=== PATIENT | male | born 1955 ===

== ENCOUNTER 2017-06-11 07:35 | Day surgery (SDC) | payer OTHER ==
[2017-06-11] VITALS (9 sets, daily range): BP systolic 121–148; BP diastolic 82–91
[~2017-06-11] VITALS: Ht 167.6 cm; Wt 78.5 kg
[~2017-06-11 07:35] MED LIST: LR 1000ml 1,000 ML IVLG SCH
[2017-06-11] MEDS ORDERED: Lidocaine 1% MPF 10mg/ml 5ml ONE (07:36)
[2017-06-11] MEDS ORDERED: Midazolam 2mg/2ml Inj ONE (07:36)
[2017-06-11] MEDS ORDERED: LR 1000ml ONE (07:36)
[2017-06-11] MEDS ORDERED: Propofol 200mg/20ml IV ONE (07:36)
--- NOTE | 2017-06-11 07:53 | Short Stay Surgery H&P ---
History of Present Illness History of Present Illness Chief Complaint Abdominal pains, GERD and dysphagia HPI Richard Muro is a 61 year old male who was admitted on for GERDS and dysphagia/abdominal pains Patient History Allergies: Coded Allergies: No Known Allergies (Unverified , 06/10/17) PAST MEDICAL HISTORY: Past Surgeries: Social History: Review of Systems Cardiovascular: Reports: no symptoms Respiratory: Reports: no symptoms Skeletal: Reports: trauma, other Gastrointestinal: Reports: gastro esophageal reflux disease Genitourinary: Reports: no symptoms Neurologic: Reports: no symptoms Endocrine: Reports: no symptoms Hematologic: Reports: no symptoms Physical Exam Skin: normal HENT: normal Heart: normal Lungs: normal Abdomen: abnormal Extremities: normal Genitourinary: normal Plan Plan of Care Upper GI endoscopy and biopsy Preop Interventions None. Summary of Findings See the reports Final Diagnosis: Attestation Are the patient's medical conditions optimized for surgery? Attestation Response: yes NAA TEJEDA Jun 11, 2017 07:53
--- NOTE | 2017-06-11 07:54 | Pre-Procedure Note/Attestation ---
Pre-Procedure Note/Attestation Complete Prior to Procedure Planned Procedure: left Procedure Narrative: Examination of the upper GI tract via endoscopy Indications for Procedure Pre-Operative Diagnosis: R/O peptic ulcer/esophagitis/gastritis. Attestation I attest that I discussed the nature of the procedure; its benefits; risks and complications; and alternatives (and the risks and benefits of such alternatives ), prior to the procedure, with the patient (or the patient's legal inbound sales representative). I attest that, if there was a reasonable possibility of needing a blood transfusion, the patient (or the patient's legal inbound sales representative) was given the [place] [facility] [employer] [facility] standardized written summary, pursuant to the Luis Nahum Blood Safety Act ([place] Health and Safety Code # 1645, as amended). I attest that I re-evaluated the patient just prior to the surgery and that there has been no change in the patient's H&P, except as documented below: ILEANA,SAID Jun 11, 2017 07:54
[2017-06-11] MEDS ORDERED: LR 1000ml 1,000 ML IVLG SCH (08:39)
[2017-06-11] MEDS ORDERED: LORazepam Inj 2mg/ml 1ml IV PRN (08:45)
[2017-06-11] MEDS ORDERED: Hydromorphone 0.5mg/0.5ml inj IVP PRN (08:45)
[2017-06-11] MEDS ORDERED: DiphenhydrAMINE 50mg/ml Inj IVP PRN (08:45)
[2017-06-11] MEDS ORDERED: HYDROcodone/Acetamin 7.5/325 tab ORAL PRN (08:45)
[2017-06-11] MEDS ORDERED: Atropine Inj 1mg/10ml Syr IV PRN (08:45)
[2017-06-11] MEDS ORDERED: oxyCODONE HCL/Acetaminophen 5/325mg ORAL PRN (08:45)
[2017-06-11] MEDS ORDERED: Ketorolac 30mg Inj IV PRN ×2 (08:45)
[2017-06-11] MEDS ORDERED: Midazolam 2mg/2ml Inj IVP PRN (08:45)
[2017-06-11] MEDS ORDERED: Labetalol 5mg/ml 20ml vial IV PRN (08:45)
[2017-06-11] MEDS ORDERED: fentaNYL 100 mcg/2 mL IV PRN (08:45)
[2017-06-11] MEDS ORDERED: Norco 5mg/325mg tab ORAL PRN (08:45)
--- NOTE | 2017-06-11 08:48 | Anethesia Preoperative Eval ---
Anesthesia Pre-op PMH/ROS General Date of Evaluation: Jun 11, 2017 Time of Evaluation: 08:34 Anesthesiologist: Johnny ASA Score: ASA 3 Mallampati Score Class I : Soft palate, uvula, fauces, pillars visible Class II: Soft palate, uvula, fauces visible Class III: Soft palate, base of uvula visible Class IV: Only hard plate visible Mallampati Classification: Class II Surgeon: Modesta Diagnosis: GERD Surgical Procedure: EGD Anesthesia History: none Family History: no anesthesia problems Allergies: Coded Allergies: No Known Allergies (Unverified , 06/10/17) Medications: see eMAR Past Medical History Cardiovascular: Reports: HTN Gastrointestinal/Genitourinary: Reports: GERD, other - BPH, Hiatal Hernia Musculoskeletal/Integumentary: Reports: other - Back Pain Other: obesity - BMI 30 Anesthesia Pre-op Phys. Exam Physician Exam Last Vital Signs Date Time Temp Pulse Resp B/P (MAP) Pulse Ox O2 Delivery O2 Flow Rate FiO2 06/11/17 08:25 97.3 64 18 148/87 98 Room Air 97.3 Constitutional: NAD Neurologic: CN 2-12 intact Cardiovascular: RRR Respiratory: CTA Gastrointestinal: S/NT/ND Airway Exam Mallampati Score: Class II MO: limited ROM: limited Teeth: missing, intact Anesthesia Pre-op A/P Risk Assessment & Plan Assessment: ASA 3 Plan: GA Status Change Before Surgery: Franko Arriaga MD Jun 11, 2017 08:48
--- NOTE | 2017-06-11 08:50 | Endoscopy Procedure Note ---
Endoscopy Procedure Note General Indication for Procedure: Abdominalp pains Procedures Performed: EGD - Small sliding Hiatal Hernia. Mild/Moderate gastritis. biopsies were obtained from fundus and gastric body area. Specimen: yes Pt Tolerated Procedure Well: Yes Estimated Blood Loss: none Anesthesia Anesthesiologist: Dr. Jones Anesthesia: moderate sedation Medications Medication Given: see anesthesia record Inserted Devices Implant(s) used?: No Quality Quality of Bowel Preparation: Excellent GI Core Measures 50 yrs or older w/o bx or poly: Not Applicable 10yrs. F/U not recommended: Not Applicable If not recommended, why?: Med reason:<3 yrs.: System Reason:<3 yrs.: NAA TEJEDA Jun 11, 2017 08:50
--- NOTE | 2017-06-11 08:51 | Discharge Instructions ---
Discharge Instructions Discharge Instructions Follow up with: See doctor in his office after 2 weeks For Congestive Heart Failure Reminder Report to your physician any weight gain of 5 pounds or more in one week. NAA TEJEDA Jun 11, 2017 08:51
--- NOTE | 2017-06-11 09:06 | Immediate Post-Op Evaluation ---
Immediate Post-Op Evalulation Immediate Post-Op Evalulation Procedure: EGD Date of Evaluation: Jun 11, 2017 Time of Evaluation: 09:12 IV Fluids: 200 LR Blood Products: 0 Estimated Blood Loss: 2 Urinary Output: 0 Blood Pressure Systolic: 126 Blood Pressure Diastolic: 84 Pulse Rate: 72 Respiratory Rate: 16 O2 Sat by Pulse Oximetry: 100 Temperature (Fahrenheit): 97.4 Pain Score (1-10): 2 Nausea: No Vomiting: No Complications 0 Patient Status: awake, reacts, patent, none Hydration Status: adequate Franko Turner MD Jun 11, 2017 09:06
--- NOTE | 2017-06-11 13:45 | Operative Note - Dictated ---
DATE OF OPERATION: 06/11/2017 SURGEON: Ward Byers M.D. PROCEDURE: Esophagogastroduodenoscopy with biopsy. REFERRING PHYSICIAN: Allen Contreras M.D. PREOPERATIVE DIAGNOSES: 1. Chest pain. 2. Dysphagia. 3. Abdominal pain. 4. Heartburn. POSTOPERATIVE DIAGNOSES: 1. Small sliding hiatal hernia. 2. Mild/moderate gastritis, otherwise normal study. Biopsy was taken from the fundus and the gastric body part area. MEDICATION USED: Per Dr. Turner. INSTRUMENT: GIF Olympus upper GI video endoscope. DESCRIPTION OF PROCEDURE: The patient after arriving in endoscopy unit, was told about risks and benefits of the procedure, which he accepted and signed informed consent. At this time, he was put in the left lateral decubitus position. After adequate IV sedation, the scope was gently passed through the cricopharyngeal area. A careful examination of this section including larynx did not reveal any pathology, tumors, ulcers, stricture, etc., in this area of esophagus. The scope was gradually advanced through the normal-looking esophagus reaching to the GE junction, which also looked normal. However, there was evidence of a small sliding hiatal hernia without Calhoun's. Subsequently, the scope was guided into the stomach. Gastric cavity was distended with insufflation of air and gradually the areas of the fundus and the body and the antrum were examined. This area revealed evidence of [id number] inflammatory process presenting with erythema and edema and occasional punctuated submucosal hemorrhages, spots. However, there was not any major ulcers, tumors, or polyps noted at this time. One biopsy from the fundus and the other one from the body of the stomach was obtained and subsequently scope was passed through normal-looking pylorus and first and second portion of duodenum were also found to be completely normal. Finally, the scope was pulled out and procedure was terminated. The patient tolerated the procedure well and left the endoscopy room in a good condition. Said Ermias Byers DR: LEONARDO JOB#: [id number] CC: DERIAN
--- NOTE | 2017-06-11 15:30 | Pre-op HX & Phy Repo 2 SIG ---
DATE OF ADMISSION: 06/11/2017 PREOPERATIVE HISTORY AND PHYSICAL REFERRING PHYSICIAN: This patient was referred by Dr. Allen Contreras. He is not on the staff. HISTORY OF PRESENT ILLNESS: The applicant is a 61-year-old gentleman, who is being seen prior to undergoing the procedure of upper gastrointestinal endoscopy, for which he has been scheduled to receive for evaluation of his gastrointestinal symptoms that he has been complaining subsequent to his work injury. The patient basically reports experiencing pressure over his esophagus consistent with dysphagia which is aggravated by the consumption of food. Also, he does have chest pain and a significant heartburn symptoms. He reports that he has been experiencing these symptoms subsequent to his work injury when he was started on multiple medications including strong analgesics and nonsteroidal anti-inflammatory agents. He reports that these symptoms stay with him all the day as well. As I mentioned, he feels pressure over his chest area. In the past, he was treated with some medication to control his acids such as omeprazole that he had to stop taking them as he reports that he was suggested by some physician to do that. 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 The applicant at this time, denies having any history of rectal bleeding, hematemesis, melena, etc. There is no history of weight loss. PAST MEDICAL HISTORY: Basically none significant. He denies hypertension, diabetes, arthritis, etc. PAST SURGICAL HISTORY: None significant. FAMILY HISTORY: None significant. HABITS: The applicant denies drinking, alcohol or smoking cigarettes. REVIEW OF SYSTEMS: Basically history of present illness. PHYSICAL EXAMINATION: GENERAL: Alert and well-oriented gentleman, does not seem to be in any acute distress. He looks well developed and nourished. He answers the questions appropriately. VITAL SIGNS: All stable. HEENT: Normocephalic. Pupils equal in size and reactive to light and accommodation. No visible jaundice. Buccal cavity, tongue midline, well hydrated. No ulcers. NECK: Supple. No JVD, thyromegaly, or adenopathy. CHEST: Clear to auscultation and percussion. No rales or rhonchi. HEART: S1 and S2 normal. Regular rhythm. No gallops or murmur. ABDOMEN: Soft, but mildly tender mostly over the epigastric area. There is no organomegaly. No palpable mass noted. EXTREMITIES: Within normal limits. PRELIMINARY PREOPERATIVE IMPRESSION: 1. Dysphagia of known etiology, rule out esophageal spasm versus esophagitis/strictures caused by the side effects of medication used for the treatment of bodily injury. 2. Rule out peptic ulcer disease and NSAID-induced gastritis. 3. History of bodily injury, work related. RECOMMENDATIONS: The applicant seems to be stable at this time to undergo the procedure for upper gastrointestinal endoscopy, for which he has been scheduled. He understands the risks and benefits and will sign the consent. Said Ermias Byers DR: FILIPE JOB#: [id number] CC: DERIAN
== END 2017-06-11 10:25 | disposition home or self-care (01) ==
LOC: GAS 07:35
DX: K44.9 Diaphragmatic hernia without obstruction or gangrene (principal); K29.70 Gastritis, unspecified, without bleeding; R07.9 Chest pain, unspecified; R13.10 Dysphagia, unspecified; R12 Heartburn; K21.9 Gastro-esophageal reflux disease without esophagitis; I10 Essential (primary) hypertension
CPT/HCPCS: 43239; J2250; J2704; J7120; 94003; 94150